=== PATIENT | male | born 1960 | race Caucasian/White ===

== ENCOUNTER 2017-07-01 21:50 | Emergency (ER) | payer MEDICARE, MEDICAID ==
[2017-07-01] MEDS ORDERED: ASPIRIN 81 MG TABLET, CHEWABLE PO ONE (22:33)
[2017-07-01 23:08] LABS: ABSOLUTE BASOPHILS # (AUTO) 0.1 10^3/uL (0.0-0.2); ABSOLUTE EOSINOPHILS # (AUTO) 0.1 10^3/uL (0.0-0.6); ABSOLUTE LYMPHOCYTES (AUTO) 4.5 10^3/uL (0.5-4.7); ABSOLUTE MONOCYTES (AUTO) 0.7 10^3/uL (0.1-1.4); ABSOLUTE NEUT (AUTO) 6.5 10^3/uL (1.7-8.2); BASOPHILS % (AUTO) 0.5 % (0-2); EOSINOPHILS % (AUTO) 1.2 % (0-6); HEMATOCRIT 48.9 % (37.9-51.0); LYMPHOCYTES % (AUTO) 37.6 % (13-45); MEAN CORPUSCULAR HEMOGLOBIN 33.9 pg (27.0-33.4); MEAN CORPUSCULAR HGB CONC 34.9 g/dL (32.0-36.0); MEAN CORPUSCULAR VOLUME 97 fl (80-97); PLATELET COUNT 129 10^3/uL (150-450); RED BLOOD COUNT 5.03 10^6/uL (4.35-5.55); RED CELL DISTRIBUTION WIDTH 13.1 % (11.5-14.0); SEGMENTED NEUTROPHILS % (AUTO) 54.7 % (42-78); TOTAL CELLS COUNTED % (AUTO) 100 %
--- NOTE | 2017-07-01 23:09 | RADIOLOGY REPORT (SQ) ---
EXAM DESCRIPTION: CHEST SINGLE VIEW CLINICAL HISTORY: 56 years Male, cp COMPARISON: 7.1.13 NUMBER OF VIEWS/TECHNIQUE: 1/AP LIMITATIONS: None. FINDINGS: Normal lung volume, clear parenchyma, normal cardiac silhouette, and intact bony thorax. IMPRESSION: No acute cardiopulmonary findings.
[2017-07-01 23:31] LABS: ALANINE AMINOTRANSFERASE 27 U/L (21-72); ALBUMIN 4.2 g/dL (3.5-5.0); ALKALINE PHOSPHATASE 62 U/L (38-126); ANION GAP 11 (5-19); ASPARTATE AMINO TRANSFERASE 18 U/L (17-59); BILIRUBIN,DIRECT 0.2 mg/dL (0.0-0.4); BILIRUBIN,TOTAL 0.3 mg/dL (0.2-1.3); BLOOD UREA NITROGEN 21 mg/dL (7-20); CALCIUM 9.6 mg/dL (8.4-10.2); CARBON DIOXIDE 28 mmol/L (22-30); CHLORIDE 99 mmol/L (98-107); CREATINE KINASE 73 U/L (55-170); GLUCOSE 130 mg/dL (75-110); POTASSIUM 3.6 mmol/L (3.6-5.0); SODIUM 138.3 mmol/L (137-145); TOTAL PROTEIN 6.9 g/dL (6.3-8.2)
[2017-07-01 23:41] LABS: CREATINE KINASE MB 0.41 ng/mL (<4.55)
[2017-07-01 23:42] LABS: TROPONIN I < 0.012 ng/mL
--- NOTE | 2017-07-02 00:06 | EKG REPORT ---
SEVERITY:- NORMAL ECG - SINUS RHYTHM : Confirmed by: Wilner Ivan MD 02-Jul-2017 00:06:06
--- NOTE | 2017-07-02 00:24 | ER Document Report ---
ED Cardiac - General Chief Complaint: Chest Pain Stated Complaint: CHEST PAIN Time Seen by Provider: 07/02/17 00:16 Notes: Patient is a 56-year-old male who comes emergency department for chief complaint of chest pain. He states symptoms happen when he moves, he also feels pain in his mid upper back when he moves, symptoms of been going on for 3 days. He denies vomiting, cough, shortness of breath, injury. He states it feels like a pulled muscle but he wants to be sure. Past medical history of hypertension, hyperlipidemia, back surgery, hiatal hernia. He states he has had a stress test but this was more than 5 years ago. He denies personal or family history of DC. He smokes. TRAVEL OUTSIDE OF THE [place] IN LAST 30 DAYS: No - Related Data Allergies/Adverse Reactions: No Known Allergies Allergy (Verified 10/11/12 18:26) Past Medical History - General Information source: Patient - Social History Smoking Status: Never Smoker Frequency of alcohol use: None Drug Abuse: None Lives with: Family Family History: CAD - Past Medical History Cardiac Medical History: Reports: Hx Hypercholesterolemia, Hx Hypertension GI Medical History: Reports: Hx Gastroesophageal Reflux Disease, Hx Hiatal Hernia Surgical Hx: Negative - Immunizations Hx Diphtheria, Pertussis, Tetanus Vaccination: Yes Review of Systems - Review of Systems Constitutional: No symptoms reported EENT: No symptoms reported Cardiovascular: See HPI Respiratory: No symptoms reported Gastrointestinal: No symptoms reported Genitourinary: No symptoms reported Male Genitourinary: No symptoms reported Musculoskeletal: No symptoms reported Skin: No symptoms reported Hematologic/Lymphatic: No symptoms reported Neurological/Psychological: No symptoms reported Physical Exam - Vital signs Vitals: Temp Pulse Resp BP Pulse Ox 98.1 F 50 L 20 144/71 H 97 07/01/17 22:56 07/01/17 22:56 07/01/17 22:56 07/01/17 22:56 07/01/17 22:56 Interpretation: Normal - General General appearance: Appears well, Alert In distress: None - HEENT Head: Normocephalic, Atraumatic Eyes: Normal Pupils: PERRL - Respiratory Respiratory status: No respiratory distress Chest status: Nontender, Pain on movement. No: Tender - No overt tenderness noted to the chest wall Breath sounds: Normal. No: Decreased air movement, Nonproductive cough, Wheezing Chest palpation: Normal - Cardiovascular Rhythm: Regular Heart sounds: Normal auscultation Murmur: No - Abdominal Inspection: Normal Distension: No distension Bowel sounds: Normal Tenderness: Nontender Organomegaly: No organomegaly - Back Back: Tender - There is reproducible palpable tenderness in the left upper thoracic region, no midline tenderness, moves all extremities and full range of motion, normal distal neurovascular exam. No: Vertebra tenderness - Extremities General upper extremity: Normal inspection, Nontender, Normal color, Normal ROM , Normal temperature General lower extremity: Normal inspection, Nontender, Normal color, Normal ROM , Normal temperature, Normal weight bearing. No: Mariza's sign - Neurological Neuro grossly intact: Yes Cognition: Normal Orientation: AAOx4 Tonja Coma Scale Eye Opening: Spontaneous [place] Coma Scale Verbal: Oriented Tonja Coma Scale Motor: Obeys Commands [place] Coma Scale Total: 15 Speech: Normal Motor strength normal: LUE, RUE, LLE, RLE Sensory: Normal - Psychological Associated symptoms: Normal affect, Normal mood - Skin Skin Temperature: Warm Skin Moisture: Dry Skin Color: Normal Course - Re-evaluation Re-evalutation: EKG shows sinus bradycardia, no T-wave inversions or ST segment changes in consecutive leads, otherwise unremarkable. Chest x-ray is unremarkable. CBC, chemistry show thrombocytopenia, also shows mildly elevated renal functioning, otherwise unremarkable. Initial troponin is negative. Patient states she is frequently found to have low platelets, states this is undiagnosed as to a cause, he does not have any bleeding. Discussed with patient. His heart score is 3. He has had symptoms for 3 days, reproducible pain in his back, pain is worse with movement, no tachycardia, no shortness of breath, no pain unless he is moving. After initial workup patient states he would like to leave. Because of symptom duration, unremarkable workup , atypical symptoms, after discussion I did recommend a second troponin but when patient declined this and states he will follow closely with his primary care provider the decision was made for patient to be discharged with return precautions. Patient states he will return if he develops any new or worsening symptoms. - Vital Signs Vital signs: Temp Pulse Resp BP Pulse Ox 98.9 F 50 L 17 138/68 H 97 07/02/17 01:00 07/01/17 22:56 07/02/17 01:00 07/02/17 01:00 07/02/17 01:00 - Laboratory Result Diagrams: 07/01/17 22:45 07/01/17 22:45 Laboratory results interpreted by me: 07/01/17 07/01/17 22:45 22:45 WBC 12.0 H MCH 33.9 H Plt Count 129 L BUN 21 H Creatinine 1.32 H Est GFR (Non-Af Amer) 56 L Glucose 130 H Discharge - Discharge Clinical Impression: Chest pain Qualifiers: Chest pain type: other chest pain Qualified Code(s): R07.89 - Other chest pain Back pain Qualifiers: Back pain location: thoracic back pain Chronicity: acute Back pain laterality: bilateral Qualified Code(s): M54.6 - Pain in thoracic spine Condition: Stable Disposition: HOME, SELF-CARE Additional Instructions: Your symptoms, examination, and workup are normal up to this point except for low platelets and borderline kidney functioning. Your examination indicates a muscular source of pain as well, you can take gidm-ajz-hdpzyye medication such as Tylenol, you can also take the prescribed muscle relaxants if needed. Heat over the area can help. Please follow-up closely with your primary care provider for additional evaluation and management, follow-up within the next several days. Return if you worsen including returned or worsening pain, vomiting, difficulty breathing, or any other concerning symptoms. Prescriptions: Methocarbamol [Robaxin 500 mg Tablet] 500 mg PO QID PRN #20 tablet PRN Reason: Referrals: IMER SALDANA MD [Primary Care Provider] - 07/04/17
[2017-07-02 01:54] VITALS: BP 138/68
== END 2017-07-02 01:54 | disposition home or self-care (01) ==
LOC: ER 21:50
DX: R07.89 Other chest pain (principal); M54.6 Pain in thoracic spine; K21.9 Gastro-esophageal reflux disease without esophagitis; E78.00 Pure hypercholesterolemia, unspecified; I10 Essential (primary) hypertension
CPT/HCPCS: 36415; 71045; 80053; 82550; 82553; 84484; 85025; 93005; 93010; 99285

== ENCOUNTER 2018-08-12 08:29 | Day surgery (SDC) | payer MEDICARE, MEDICAID ==
[~2018-08-12 08:29] MED LIST: PROPOFOL INJ 200 MG/20 ML VIAL IV ONE
[2018-08-12 10:01] VITALS: BP 126/68
--- NOTE | 2018-09-10 12:41 | Operative Report ---
Operative Report DATE OF SURGERY: 08/12/18 Operative Report: The risks benefits and alternatives of the procedure explained to the patient in detail and informed consent is obtained.A GIF Olympus video scope was inserted into the patient's mouth and hypopharynx, the esophagus is identified intubated and insufflated, the scope was then advanced through the esophagus stomach and duodenum ,retroflexion maneuver is done, the esophagus stomach and first and second portions of the duodenum examined. PREOPERATIVE DIAGNOSIS: Gastroesophageal reflux disease POSTOPERATIVE DIAGNOSIS: Gastritis status post biopsy OPERATION: EGD with biopsy SURGEON: SIGRID NAVA ANESTHESIA: Moderate Sedation - Conscious sedation monitoring time 30 minutes. TISSUE REMOVED OR ALTERED: Gastric mucosal specimen obtained COMPLICATIONS: None. ESTIMATED BLOOD LOSS: None. INTRAOPERATIVE FINDINGS: As noted above. PROCEDURE: Patient tolerated the procedure well. No immediate postprocedure complications are noted. Patient discharged in good condition. Discharge date 08/12/2018. Discharge diet: Regular. Discharge activity: Regular. 2 to 3-week follow-up to discuss findings. Patient is instructed to call the office or proceed to the emergency room should there be any further questions. Wait on the pathology.
== END 2018-08-12 09:40 | disposition home or self-care (01) ==
LOC: END 08:29
PROVIDERS: ATTEND Internal Medicine Gastroenterology
DX: K29.70 Gastritis, unspecified, without bleeding (principal); K21.9 Gastro-esophageal reflux disease without esophagitis; I10 Essential (primary) hypertension; Z79.899 Other long term (current) drug therapy; Z86.010 Personal history of colon polyps; K64.8 Other hemorrhoids
CPT/HCPCS: 43239; 88305 ×2; J2704; 731

== ENCOUNTER → 2019-01-06 | Outpatient (CLI) | payer MEDICARE, MEDICAID ==
--- NOTE | 2019-01-06 10:48 | RADIOLOGY REPORT (SQ) ---
EXAM DESCRIPTION: CHEST 2 VIEWS COMPLETED DATE/TIME: 01/06/2019 9:24 am REASON FOR STUDY: M54.9 BACK PAIN, R05 COUGH COMPARISON: 07/01/2017 EXAM PARAMETERS: NUMBER OF VIEWS: two views TECHNIQUE: Digital Frontal and Lateral radiographic views of the chest acquired. RADIATION DOSE: NA LIMITATIONS: none FINDINGS: LUNGS AND PLEURA: No opacities, masses or pneumothorax. No pleural effusion. MEDIASTINUM AND HILAR STRUCTURES: No masses or contour abnormalities. HEART AND VASCULAR STRUCTURES: Heart normal size. No evidence for failure. BONES: No acute findings. HARDWARE: None in the chest. OTHER: No other significant finding. IMPRESSION: 1. No significant interval changes since the prior examination dated 07/01/2017. No acut e findings. TECHNICAL DOCUMENTATION: JOB ID: [id number]- All Rights Reserved Reading location - IP/workstation name: [email or web address]
--- NOTE | 2019-01-06 10:50 | RADIOLOGY REPORT (SQ) ---
EXAM DESCRIPTION: T SPINE AP/LAT COMPLETED DATE/TIME: 01/06/2019 9:24 am REASON FOR STUDY: M54.9 BACK PAIN, R05 COUGH COMPARISON: None. NUMBER OF VIEWS: Two views. TECHNIQUE: AP and lateral radiographic images acquired of the thoracic spine. LIMITATIONS: None. FINDINGS: MINERALIZATION: Normal. ALIGNMENT: Normal. No scoliosis. VERTEBRAE: No fracture or bone lesion. Maintained height, normal segmentation. DISCS: Mild multilevel disc space narrowing. Mildly prominent anterior and right marginal osteophyt es mid lower thoracic spine. HARDWARE: None in the spine. MEDIASTINUM AND SOFT TISSUES: Normal heart size and aortic contour. No soft tissue abnormality. VISUALIZED LUNG BUCHANAN: Clear. OTHER: No other significant finding. IMPRESSION: 1. Degenerative changes mid-lower thoracic spine. 2. No acute osseous findings. TECHNICAL DOCUMENTATION: JOB ID: [id number] [employer]- All Rights Reserved Reading location - IP/workstation name: [email or web address]
--- NOTE | 2019-01-06 10:55 | RADIOLOGY REPORT (SQ) ---
EXAM DESCRIPTION: L SPINE WHOLE COMPLETED DATE/TIME: 01/06/2019 9:24 am REASON FOR STUDY: M54.9 BACK PAIN, R05 COUGH COMPARISON: None. NUMBER OF VIEWS: Five views including obliques. TECHNIQUE: AP, lateral, oblique, and sacral radiographic images acquired of the lumbar spine. LIMITATIONS: None. FINDINGS: MINERALIZATION: Normal. SEGMENTATION: Normal. No transitional anatomy. ALIGNMENT: Normal. VERTEBRAE: Slight to very mild compression deformity involving the superior endplate of the L3 verte bra, age is indeterminate. No evidence of retropulsion into the spinal canal. The remaining lumbar vertebrae are unremarkable in appearance. DISCS: Mild disc space narrowing lower lumbar spine. Prominent anterior osteophytes L4 and L5. Mil d anterior osteophytes L2 and L3. POSTERIOR ELEMENTS: Pedicles and facets are intact. No pars defect or posterior arch defects. HARDWARE: None in the spine. PARASPINAL SOFT TISSUES: Normal. PELVIS: Intact as visualized. No fractures or worrisome bone lesions. SI joints intact. OTHER: Atherosclerotic changes involving the abdominal aorta with mild dilatation of the mid distal abdominal aorta suggested. Prior cholecystectomy. IMPRESSION: 1. Slight to very mild compression deformity involving the superior endplate of the L3 vertebra, age is indeterminate. Correlation suggested. 2. Degenerative changes lower lumbar spine. 3. Atherosclerotic changes involving the abdominal aorta with mild dilatation of the mid-distal abdo leonid aorta suggested. Further evaluation with abdominal aorta ultrasound suggested. TECHNICAL DOCUMENTATION: JOB ID: [id number] [employer]- All Rights Reserved Reading location - IP/workstation name: [email or web address]
== END ==
LOC: RAD 08:52
PROVIDERS: ATTEND Nurse Practitioner Family
DX: M54.5 Low back pain (principal); R05 Cough
CPT/HCPCS: 71046; 72070; 72110

== ENCOUNTER → 2019-01-17 | Outpatient (CLI) | payer MEDICARE, MEDICAID ==
--- NOTE | 2019-01-17 09:12 | RADIOLOGY REPORT (SQ) ---
EXAM DESCRIPTION: SKULL 1-3 VIEWS COMPLETED DATE/TIME: 01/17/2019 8:50 am REASON FOR STUDY: foreign body eval Z13.6 ENCOUNTER FOR SCREENING FOR CARDIOVASCULAR DISORDERS M54. 9 DORSALGIA, UNSPECIFIED I35.8 OTHER NONRHEUMATIC AORTIC VALVE DISORDERS COMPARISON: None. NUMBER OF VIEWS: Three Views. TECHNIQUE: Frontal and right and left lateral views. LIMITATIONS: None. FINDINGS: BONES: No acute fractures. No bony lesions. SOFT TISSUES: No radiopaque foreign object. OTHER: No other significant finding. IMPRESSION: NO RADIOPAQUE FOREIGN OBJECT. PATIENT IS CLEARED FOR MRI. TECHNICAL DOCUMENTATION: JOB ID: [id number] [employer]- All Rights Reserved Reading location - IP/workstation name: [email or web address]
--- NOTE | 2019-01-17 10:33 | RADIOLOGY REPORT (SQ) ---
EXAM DESCRIPTION: U/S ABD AORTIC SCREENING COMPLETED DATE/TIME: 01/17/2019 8:20 am REASON FOR STUDY: ENCOUNTER FOR SCREENING FOR CARDIOVASCULAR DISORDERS (Z13.6) Z13.6 ENCOUNTER FOR SCREENING FOR CARDIOVASCULAR DISORDERS M54.9 DORSALGIA, UNSPECIFIED I35.8 OTHER NONRHEUMATIC AORTIC VALVE DISORDERS COMPARISON: None. TECHNIQUE: Static and dynamic grayscale images acquired of the aorta and stored on PACs. Selected co subhash Doppler and spectral images recorded. LIMITATIONS: None. FINDINGS: AORTIC CALIBER MAXIMAL PROXIMAL: 2.8 cm. MID: 2.5 cm. DISTAL: 2.6 cm. ILIAC DIAMETER RIGHT: 1.5 cm. LEFT: 1.6 cm. OTHER: No other significant finding. IMPRESSION: BORDERLINE DILATION OF THE INFRARENAL ABDOMINAL AORTA, MEASURING 2.6 CM. COMMENT: Aortic aneurysm imaging followup: 2.6-2.9 cm Every 5 years* *Based upon the Society for Vascular Surgery Guidelines: J Vasc Surg. 2009 Oct;50(4 Suppl):S2-49 *For aortas of maximum diameter of 2.6-2.9 cm meeting the criteria for AAA (?1.5 x proximal normal se gment) TECHNICAL DOCUMENTATION: JOB ID: [id number] [employer]- All Rights Reserved Reading location - IP/workstation name: [email or web address]
--- NOTE | 2019-01-17 11:12 | RADIOLOGY REPORT (SQ) ---
EXAM DESCRIPTION: MRI LUMBAR SPINE WITHOUT COMPLETED DATE/TIME: 01/17/2019 9:34 am REASON FOR STUDY: DORSALGIA (M54.9) Z13.6 ENCOUNTER FOR SCREENING FOR CARDIOVASCULAR DISORDERS M54. 9 DORSALGIA, UNSPECIFIED I35.8 OTHER NONRHEUMATIC AORTIC VALVE DISORDERS COMPARISON: None. TECHNIQUE: Sagittal and Axial imaging includes T1, T2, STIR and gradient echo sequences. Coronal T2/ HASTE imaging. LIMITATIONS: None. FINDINGS: VISUALIZED UPPER ABDOMEN: Limited evaluation. Cysts in the left kidney. SEGMENTATION: No transitional anatomy. The lowest well-developed disc space is labeled L5-S1. ALIGNMENT: Anatomic. VERTEBRAE: Intact. BONE MARROW: Normal. No marrow replacement or reactive changes. DISC SIGNAL: Normal. No significant abnormal signal or loss of height. POSTERIOR ELEMENTS: Generally intact. No pars defect evident. HARDWARE: None in the spine. CORD AND CONUS: Normal in size and signal intensity. Conus at the appropriate level. SOFT TISSUES: No aortic aneurysm seen. No bulky retroperitoneal adenopathy or mass. No paraspinal mas s or fluid. L1-L2: No significant spinal stenosis or exit foraminal stenosis. L2-L3: No significant spinal stenosis or exit foraminal stenosis. L3-L4: No significant spinal stenosis or exit foraminal stenosis. L4-L5: Mild diffuse posterior disc bulge with asymmetric right paracentral component. Right lateral recess stenosis with displacement of the adjacent nerve roots. No significant exit foraminal stenosi s. L5-S1: Mild diffuse posterior disc bulge. Mild facet arthropathy. No significant spinal stenosis. Mild exit foraminal stenosis. LOWER THORACIC: Incompletely imaged. No stenosis seen. SACRUM: Visualized upper sacrum intact. OTHER: Small infrarenal abdominal aortic aneurysm with AP measurement of 3.3 cm. IMPRESSION: 1. MILD DEGENERATIVE CHANGES IN THE LOWER LUMBAR SPINE DESCRIBED. 2. SMALL INFRARENAL ABDOMINAL AORTIC ANEURYSM WITH AP MEASUREMENT OF 3.3 CM. TECHNICAL DOCUMENTATION: JOB ID: [id number]- All Rights Reserved Reading location - IP/workstation name: [email or web address]
== END ==
LOC: RAD 07:51
PROVIDERS: ATTEND Nurse Practitioner Family
DX: Z13.6 Encounter for screening for cardiovascular disorders (principal); I71.4 Abdominal aortic aneurysm, without rupture; F17.210 Nicotine dependence, cigarettes, uncomplicated; M51.36 Other intervertebral disc degeneration, lumbar region; M48.07 Spinal stenosis, lumbosacral region; M54.9 Dorsalgia, unspecified; I35.8 Other nonrheumatic aortic valve disorders
CPT/HCPCS: 70250; 72148; 76706

== ENCOUNTER 2019-04-17 01:18 | Emergency (ER) | payer MEDICARE, MEDICAID ==
[2019-04-17] MEDS ORDERED: PENICILLIN V POTASSIUM 500 MG TABLET PO ONE (05:31)
[2019-04-17] MEDS ORDERED: HYDROCODONE/ACETAMINOPHEN 5-325 MG TABLET PO ONE (05:31)
--- NOTE | 2019-04-17 05:36 | ER Document Report ---
ED Oral Problem - General Chief Complaint: Jaw Pain Stated Complaint: JAW PAIN Time Seen by Provider: 04/17/19 05:20 Primary Care Provider: EVA LANZA NP [Primary Care Provider] - Follow up as needed Mode of Arrival: Ambulatory Information source: Patient Notes: 58-year-old male presented to ED for complaint of dental pain with pain to the left lower jaw. He states this started yesterday and got worse during the night. He states he did see a dentist this summer and they filled the tooth that is now painful. TRAVEL OUTSIDE OF THE [place] IN LAST 30 DAYS: No - HPI Patient complains to provider of: Toothache Onset: Yesterday Onset: Gradual Quality of pain: Sharp, Throbbing Severity: Moderate Pain Level: 2 Associated symptoms: Toothache Worsened by: Heat Similar symptoms previously: Yes Recently seen / treated by doctor/dentist: No - Related Data Allergies/Adverse Reactions: No Known Allergies Allergy (Verified 08/12/18 08:05) Home Medications: simvastatin 20 mg qhs. sertraline 100 mg qday. KCL 10 mEq qday. omeprazole 20 mg qday. lisinopril 20 mg qday. Chlorthalidone 12.5 mg qday. atenolol 25 mg qday Past Medical History - General Information source: Patient - Social History Smoking Status: Current Every Day Smoker Cigarette use (# per day): Yes - Pack per day Smoking Education Provided: Yes - 4 minutes Frequency of alcohol use: None Drug Abuse: None Lives with: Family Family History: CAD Patient has suicidal ideation: No Patient has homicidal ideation: No - Past Medical History Cardiac Medical History: Reports: Hx Hypercholesterolemia, Hx Hypertension Pulmonary Medical History: Reports: None EENT Medical History: Reports: None Neurological Medical History: Reports: None Endocrine Medical History: Reports: None Renal/ Medical History: Reports: None Malignancy Medical History: Reports None GI Medical History: Reports: Hx Gastroesophageal Reflux Disease, Hx Hiatal Hernia Musculoskeletal Medical History: Reports None Skin Medical History: Reports None Psychiatric Medical History: Reports: None Traumatic Medical History: Reports: None Infectious Medical History: Reports: None Surgical Hx: Negative Past Surgical History: Reports: None - Immunizations Hx Diphtheria, Pertussis, Tetanus Vaccination: Yes Review of Systems - Review of Systems Constitutional: No symptoms reported EENT: Mouth pain, Dental problem Cardiovascular: No symptoms reported Respiratory: No symptoms reported Gastrointestinal: No symptoms reported Genitourinary: No symptoms reported Male Genitourinary: No symptoms reported Musculoskeletal: No symptoms reported Skin: No symptoms reported Hematologic/Lymphatic: No symptoms reported Neurological/Psychological: No symptoms reported -: Yes All other systems reviewed and negative Physical Exam - Vital signs Vitals: Temp Pulse Resp BP Pulse Ox 97.7 F 52 L 16 145/76 H 96 04/17/19 01:59 04/17/19 01:59 04/17/19 01:59 04/17/19 01:59 04/17/19 01:59 Interpretation: Normal - General General appearance: Appears well, Alert - HEENT Head: Normocephalic, Atraumatic Eyes: Normal Pupils: PERRL Ears: Normal External canal: Normal Tympanic membrane: Normal Sinus: Normal Nasal: Normal Mouth/Lips: Caries Mucous membranes: Normal Teeth diagram: 1 - Pain and inflammation surrounding the tooth with minimal swelling to the jaw Pharynx: Normal Neck: Anterior cervical chain - Respiratory Respiratory status: No respiratory distress Chest status: Nontender Breath sounds: Normal Chest palpation: Normal - Cardiovascular Rhythm: Regular Heart sounds: Normal auscultation Murmur: No - Abdominal Inspection: Normal Distension: No distension Bowel sounds: Normal Tenderness: Nontender Organomegaly: No organomegaly - Back Back: Normal, Nontender - Extremities General upper extremity: Normal inspection, Nontender, Normal color, Normal ROM, Normal temperature General lower extremity: Normal inspection, Nontender, Normal color, Normal ROM, Normal temperature, Normal weight bearing. No: Mariza's sign - Neurological Neuro grossly intact: Yes Cognition: Normal Orientation: AAOx4 Tonja Coma Scale Eye Opening: Spontaneous [place] Coma Scale Verbal: Oriented [place]ja Coma Scale Motor: Obeys Commands [place] Coma Scale Total: 15 Speech: Normal Motor strength normal: LUE, RUE, LLE, RLE Sensory: Normal - Psychological Associated symptoms: Normal affect, Normal mood - Skin Skin Temperature: Warm Skin Moisture: Dry Skin Color: Normal Course - Re-evaluation Re-evalutation: 04/17/19 07:37 Presentation is most consistent with likely an infected tooth. Airway is patent. Vitals within normal limits. Patient is able swallow without any difficulty. There is no significant facial swelling. No evidence of Corbin angina, apical abscess, or airway obstruction. Patient will be started on ant ibiotics. I've instructed to follow-up with dentistry as earliest ability for definitive management. At this time will discharge with return precautions and follow-up recommendations. Verbal discharge instructions given a the bedside and opportunity for questions given. Medication warnings reviewed. Patient is in agreement with this plan and has verbalized understanding of return precautions and the need for primary care follow-up in the next 24-72 hours. - Vital Signs Vital signs: Temp Pulse Resp BP Pulse Ox 98 F 58 L 16 132/70 H 96 04/17/19 05:40 04/17/19 05:40 04/17/19 05:40 04/17/19 05:40 04/17/19 05:40 Discharge - Discharge Clinical Impression: Pain due to dental caries Condition: Stable Disposition: HOME, SELF-CARE Additional Instructions: TOOTHACHE: Your pain is due to dental decay. The tooth must be repaired in order for you to feel better. You will, therefore, be referred to a dentist. We do not have dentists on the staff at [facility]. Severe swelling or drainage around a tooth usually means a dental abscess. This also requires evaluation and treatment by the dentist, but antibiotics may be prescribed while awaiting dental treatment. You should be rechecked immediately if you develop major swelling of the face, increasing pain, a lump in the jaw or gums, headache, difficulty swallowing, or fever. ORAL NARCOTIC MEDICATION: You have been given a norco for pain control. This medication is a narcotic. It's best taken with food, as nausea can result if taken on an empty stomach. Don't operate machinery or drive within six hours of taking this medication. Do not combine this medicine with alcohol, or with any medication which can cause sedation (such as cold tablets or sleeping pills) unless you get permission from the physician. Narcotics tend to cause constipation. If possible, drink plenty of fluids and eat a diet high in fiber and fruits. Please be aware that prescription narcotics also have the potential for abuse. People become addicted to these medications because of the general sense of wellbeing that they induce. This feeling along with a significant reduction in tension, anxiety, and aggression provides a stimulating seductive quality to these drugs. Once your pain is under control, we encourage you to discard your unused narcotics. PENICILLIN V K: You have been given a prescription for Penicillin VK. Your physician has determined that this is the best antibiotic for your condition. Pen VK can be taken with meals, however more of the antibiotic gets into the bloodstream if it's taken on an empty stomach. Penicillin usually has no side effects. However, allergy to penicillins is common. If you have had an allergic reaction to any drug of the penicillin family, you should never take any other penicillin. Notify your doctor at once if you develop hives, itching, swelling, faintness, or shortness of breath. Acetaminophen Acetaminophen may be taken for pain relief or fever control. It's much safer than aspirin, offering a wider range of "safe" dosages. It is safe during . Some brand names are Tylenol, Panadol, Datril, Anacin 3, Tempra, and Liquiprin. Acetaminophen can be repeated every four hours. The following are maximum recommended dosages: WEIGHT Dose Drops Elixir Chewable(80mg) (LBS.) drprs=droppers tsp=teaspoon 6 40 mg .4 ml (1/2) 6-11 80 mg .8 ml (full) 1/2 tsp 1 tab 12-16 120 mg 1 1/2 drprs 3/4 tsp 1 1/2 tabs 17-23 160 mg 2 drprs 1 tsp 2 tabs 24-30 240 mg 3 drprs 1 1/2 tsp 3 tabs 30-35 320 mg 2 tsp 4 tabs 36-41 360 mg 2 1/4 tsp 4 1/2 tabs 42-47 400 mg 2 1/2 tsp 5 tabs 48-53 480 mg 3 tsp 6 tabs 54-59 520 mg 3 1/4 tsp 6 1/2 tabs 60-64 560 mg 3 1/2 tsp 7 tabs 65-70 600 mg 3 3/4 tsp 7 1/2 tabs 71-76 640 mg 4 tsp 8 tabs 77-82 720 mg 4 1/2 tsp 9 tabs 83-88 800 mg 5 tsp 10 tabs >89 pounds or adults 650 mg to 900 mg Acetaminophen can be repeated every four hours. Maximum daily dose not to exceed 4000 mg. These maximum recommended dosages are slightly higher than the dosages written on the product container, but these dosages are very safe and well below the toxic dosage for acetaminophen. Ibuprofen Ibuprofen is an excellent, safe drug for pain control. In addition, it has potent antiinflammatory effects which are beneficial, especially in the treatment of injuries, arthritis, or tendonitis. It's best to take ibuprofen with food. Persons with ulcer disease or allergy to aspirin should notify their physician of this before taking ibuprofen. Take the medication exactly as prescribed. Don't take additional doses unless instructed to do so by your doctor. If you develop wheezing, shortness of breath, hives, faintness, stomach pain, vomiting, or dark black stools, return for re-evaluation at once. FOLLOW-UP CARE: You have been referred for follow-up care to the dentists listed below. Call the dentists office for an appointment as you were instructed or within next two days. If you experience worsening or a significant change in your symptoms, notify the physician immediately or return to the Emergency Department at any time for re-evaluation. [facility] [address] [place] [address] [facility] [place] [address] [facility] [address] [facility]) [facility] [place] [email or web address] [address] [place] [address] [place] [address] Sunday- 8:00am to 5:00 pm Will see patients from other [facility]. Charges based on income and family size and accepts Medicare, Medicaid, and Insurances Will pull molars [facility] [id number] Hours of Operation 8:00 am - 4:30 pm weekdays The following dental offices accept Medicaid: [facility] Dr. [address] Dr. Riddle Dr. Tillman Dr. Whitman Zen Herrera Lutsavage, and Mario Alberto oral surgery Dr. Emmanuel ([place]) Dr. Hernandez ([place]) [facility] Drs. Tatum ([place]) Dr. Michelle ([place]) [facility] Dr. Summers ([place]) Drs. Penn and (Juda) Medicaid Care Line Prescriptions: Penicillin V Potassium [Penicillin Vk 500 mg Tablet] 500 mg PO BID #20 tablet Forms: Elevated Blood Pressure, Smoking Cessation Education Referrals: EVA LANZA, SHIPPING AND RECEIVING ASSISTANT [Primary Care Provider] - Follow up as needed
[2019-04-17 05:42] VITALS: BP 132/70
== END 2019-04-17 05:42 | disposition home or self-care (01) ==
LOC: ER 01:18
DX: K02.9 Dental caries, unspecified (principal); K08.89 Other specified disorders of teeth and supporting structures; Z98.890 Other specified postprocedural states; F17.210 Nicotine dependence, cigarettes, uncomplicated; Z71.6 Tobacco abuse counseling; E78.00 Pure hypercholesterolemia, unspecified; I10 Essential (primary) hypertension; K21.9 Gastro-esophageal reflux disease without esophagitis; Z79.899 Other long term (current) drug therapy
CPT/HCPCS: 99406; 99283; A9270 ×2